=== PATIENT | male | born 1950 | race Caucasian/White ===

== ENCOUNTER → 2023-11-27 10:46 | Outpatient (REF) | payer MEDICARE, OTHER, SELFPAY | LOC: RAD 10:46 | PROVIDERS: ATTENDING PHYSICIAN Family Medicine | DX: M51.9 Unspecified thoracic, thoracolumbar and lumbosacral intervertebral disc disorder (principal); C61 Malignant neoplasm of prostate | CPT/HCPCS: 72110 ==

== ENCOUNTER → 2024-05-15 12:33 | Outpatient (REF) | payer MEDICARE, OTHER, SELFPAY | LOC: RCS 12:33 | PROVIDERS: ATTENDING PHYSICIAN Internal Medicine Cardiovascular Disease; FAMILY PHYSICIAN Family Medicine | DX: Z95.2 Presence of prosthetic heart valve (principal); Z98.890 Other specified postprocedural states; I10 Essential (primary) hypertension | CPT/HCPCS: 93306 ==